=== PATIENT | male | born 1990 | race Caucasian/White ===

== ENCOUNTER 2024-12-03 10:00 | Emergency (ER) | payer MEDICAID ==
[~2024-12-03] VITALS: Ht 154.9 cm; Wt 68.0 kg
[2024-12-03] MEDS ORDERED: KETOROLAC TROMETHAMINE 15 MG/ML VIAL ONE (10:17)
[2024-12-03] MEDS ORDERED: ACETAMINOPHEN 325 MG TABLET ONE (10:18)
[2024-12-03] MEDS: IV LR 1000 ML 1,000 ML BAG IV ONE (10:42)
[2024-12-03] MEDS: KETOROLAC TROMETHAMINE 15 MG/ML VIAL IV ONE (10:43)
[2024-12-03] MEDS: ACETAMINOPHEN 325 MG TABLET PO ONE (10:44)
[2024-12-03 10:47] LABS: BASOPHILS % (AUTO) 0.1 % (0.0-2.0); HEMATOCRIT 39 % (39-51); HEMOGLOBIN 13.5 g/dL (13.5-17.5); LYMPHOCYTES # (AUTO) 0.4 K/uL (0.8-4.8); LYMPHOCYTES % (AUTO) 5.2 % (20.0-44.0); MEAN CORPUSCULAR HEMOGLOBIN 30 PG (26.0-33.0); MEAN CORPUSCULAR HGB CONC 34 g/dl (31.0-36.0); MEAN CORPUSCULAR VOLUME 89 fL (80-96); MONOCYTES # (AUTO) 1.1 K/uL (0.1-1.30); NEUTROPHILS # (AUTO) 6.1 K/uL (1.8-8.9); NEUTROPHILS % (AUTO) 80.7 % (43.0-81.0); PLATELET COUNT (AUTO) 201 K/uL (150-450); RED BLOOD CELL COUNT(AUTO) 4.45 MIL/uL (4.5-6.0); RED CELL DISTRIBUTION WIDTH 14.1 % (11.5-15.0); WHITE BLOOD COUNT (AUTO) 7.6 K/uL (4.3-11.0)
[2024-12-03 11:05] LABS: CALCIUM, SERUM 9.1 mg/dL (8.5-10.1); CREATININE 1.2 mg/dL (0.6-1.3); POTASSIUM 3.6 mmol/L (3.5-5.1)
[2024-12-03] MEDS ORDERED: BENZ-13 PO (13:16)
[2024-12-03] MEDS ORDERED: IBUP-1955 PO (13:16)
[2024-12-03 14:02] VITALS: BP 110/72; TEMP 98.3; O2SAT 98
== END 2024-12-03 14:19 | disposition home or self-care (01) ==
LOC: ER 10:03 → EDBD 10:03 → ER 14:19
DX: J06.9 Acute upper respiratory infection, unspecified (principal); J02.8 Acute pharyngitis due to other specified organisms; R09.81 Nasal congestion; B97.89 Other viral agents as the cause of diseases classified elsewhere; R05.9 Cough, unspecified; Z20.822 Contact with and (suspected) exposure to COVID-19; Z60.2 Problems related to living alone; R53.1 Weakness
CPT/HCPCS: 99285; 96374; 71045; 96361; 87426; 93005; 87804 ×2; 73502; 85025; 80048; 36415; J1885; J7120 ×2